=== PATIENT | female | born 1995 | race American Indian/Alaskan Native ===

== ENCOUNTER 2019-03-11 11:19 | Emergency (ER) | payer OTHER ==
--- NOTE | 2019-03-11 11:25 | Emergency Department Report ---
Blank Doc - Documentation Documentation: this is a 23-year-old female that presents with pelvic pain and vaginal bleedi ng. Stated is abot 4 weeks . This initial assessment/diagnostic orders/clinical plan/treatment(s) is/are subject to change based on patient's health status, clinical progression and re-assessment by fellow clinical providers in the ED. Further treatment and workup at subsequent clinical providers discretion. Patient/guardians urged not to elope from the ED as their condition may be serious if not clinically assessed and managed. Initial orders include: 1- Patient sent to [facility] for further evaluation and treatment 2- UA 3- labs
[2019-03-11 11:31] VITALS: BP 123/73
[2019-03-11 12:13] LABS: Basophils % (Auto) 0.1 % (0.0-1.8); Eosinophils % (Auto) 0.5 % (0.0-4.3); Hemoglobin 12.5 gm/dl (10.1-14.3); Lymphocytes # (Auto) 2.1 K/mm3 (1.2-5.4); Lymphocytes % (Auto) 38.1 % (13.4-35.0); Mean Corpuscular HGB Conc 35 % (30-34); Mean Corpuscular Volume 88 fl (79-97); Monocytes # (Auto) 0.3 K/mm3 (0.0-0.8); Platelet Count 257 K/mm3 (140-440); Red Blood Count 4.08 M/mm3 (3.65-5.03); Red Cell Distribution Width 12.7 % (13.2-15.2)
[2019-03-11 12:49] LABS: Bacteria,Urine 1+ /HPF (Negative); Bilirubin,Urine NEG (Negative); Blood,Urine NEG (Negative); Color,Urine Yellow (Yellow); Mucus,Urine 3+ /HPF; Protein,Urine <15 mg/dL mg/dL (Negative); Urobilinogen,Urine < 2.0 mg/dL (<2.0)
--- NOTE | 2019-03-11 13:15 | Emergency Department Report ---
<KIRSTIN LOTT - Last Filed: 03/11/19 15:27> ED HPI - General Chief complaint: Abdominal Pain Stated complaint: PAIN IN UTERUS/3/4 WKS Time Seen by Provider: 03/11/19 11:24 - Related Data Allergies Allergy/AdvReac Type Severity Reaction Status Date / Time No Known Allergies Allergy Unverified 03/11/19 11:22 ED Medical Decision Making - Lab Data Result diagrams: 03/11/19 11:43 - Medical Decision Making Ms. Stokes presents with suprapubic pain. She is presently 4 weeks 4 days p regnant. This is her fifth . She is has 2 living children. She had one miscarriage. On one surgical . After review of ultrasound beta Quant. Clinical impression ectopic . I spoke with Dr. Ledbetter [facility] on-call who recommended offering methotrexate to patient. I spoke with Ms. Stokes. She understands the risks alternatives benefits of this therapy. She has given consent for methotrexate therapy to treat ectopic . ED Disposition Clinical Impression: Suprapubic abdominal pain Ectopic Qualifiers: Location of ectopic : ovarian Intrauterine status: without intrauterine Laterality: left Qualified Code(s): O00.202 - Left ovarian without intrauterine Disposition: - TO HOME OR SELFCARE Condition: Stable Instructions: Ectopic (ED) Additional Instructions: follow up with Dr. Anish Ledbetter, [facility] in the next 2-3 days. will need to have a repeat beta hcg quant in the next 2-3 days, may have this done by [facility], primary care or return to the emergency room. It is very important that you follow-up with an [facility]. Return to the emergency room for any new or worsening symptoms. Referrals: ANISH LEDBETTER MD [Staff Physician] - 2-3 Days THOMPSON JEWELS KAUFMAN MD [Primary Care Provider] - 2-3 Days Forms: Work/School Release Form(ED), Methotrexate D/C Instructions Print Language: UZBEK <ALIS MCLAUGHLIN - Last Filed: 03/12/19 10:02> ED HPI - General Source: patient Mode of arrival: Ambulatory Limitations: No Limitations - History of Present Illness Initial comments: The patient is a 23-year-old female presents emergency room with complaints of suprapubic cramping that began 2 days ago. She has associated urinary sandra quency. The patient states she had some spotting last week. Denies any vaginal bleeding currently. She denies any dysuria, vaginal discharge, nausea, vomiting, fever. Patient states her last menstrual cycle was February 04. The patient states she believes she is currently . /P:2/A:2. no PMHx. no allergies to meds. ED Review of Systems ROS: Stated complaint: PAIN IN UTERUS/3/4 WKS Other details as noted in HPI Comment: All other systems reviewed and negative ED Past Medical Hx - Past Medical History Previous Medical History?: No - Surgical History Past Surgical History?: No ED Physical Exam - General Limitations: No Limitations General appearance: alert, in no apparent distress - Head Head exam: Present: atraumatic, normocephalic - Eye Eye exam: Present: normal appearance - ENT ENT exam: Present: mucous membranes moist - Respiratory Respiratory exam: Present: normal lung sounds bilaterally. Absent: respiratory distress, wheezes, rales, rhonchi, stridor, accessory muscle use, decreased breath sounds, prolonged expiratory - Cardiovascular Cardiovascular Exam: Present: regular rate, normal rhythm, normal heart sounds. Absent: systolic murmur, rubs, gallop - GI/Abdominal GI/Abdominal exam: Present: soft, tenderness (mild suprapubic), normal bowel sounds. Absent: distended, guarding, rebound, rigid - External exam: Present: other (pt deferred pelvic examination) - Neurological Exam Neurological exam: Present: alert, oriented X3 - Psychiatric Psychiatric exam: Present: normal affect, normal mood - Skin Skin exam: Present: warm, dry, intact ED Course Vital Signs 03/11/19 11:30 Temperature 98.7 F Pulse Rate 63 Respiratory 20 Rate Blood Pressure 123/73 [Right] O2 Sat by Pulse 100 Oximetry - Consultations Consultation #1: 03/11/19 15:[address] Anish Ledbetter, [facility] who recommended to offer pt methotrexate or surgical removal. pt elected to take the medication. will follow up in clinic. ED Medical Decision Making - Lab Data Result diagrams: 03/11/19 11:43 03/11/19 16:36 - Radiology Data Radiology results: report reviewed ULTRASOUND OB LESS <=14 WEEKS FETUS ULTRASOUND OB TRANSVAGINAL HISTORY: Pelvic pain for 3 days TECHNIQUE: Transabdominal and transvaginal ultrasound images with color Doppler imaging. COMPARISON: None. FINDINGS: The uterus is anteverted and measures 8.4 x 5.7 x 7.0 cm. No uterine mass is identified. The cervix is unremarkable. The endometrial stripe measures 1.1 cm and contains trace fluid. No intrauterine gestational sac is identified at this time. The right ovary is unremarkable measuring 3.0 x 1.5 x 2.1 cm. The left ovary measures 3.6 x 2.2 x 2.3 cm and contains a 1.3 cm cyst. Adjacent to the left ovary there is a complex cystic structure measuring up to 1 cm in diameter. There appears to be a tiny yolk sac within this structure. No convincing pole or heart rate is demonstrated in this structure. There is increased peripheral flow on color Doppler imaging. Trace pelvic fluid is noted in the cul-de-sac. IMPRESSION: No intrauterine is visualized at this time. Complex left adnexal cystic mass which is concerning for an early ectopic . Close interval follow-up is recommended. Signer Name: Anish Deng Jr, MD Signed: 03/11/2019 1:38 PM Workstation Name: [id number] Transcribed By: TTR Dictated By: ANISH DENG JR, MD Electronically Authenticated By: ANISH DENG JR, MD Signed Date/Time: 03/11/19 2171 - Medical Decision Making The patient is a 23-year-old female presents emergency room with complaints of suprapubic cramping that began 2 days ago. She has associated urinary frequency. The patient states she had some spotting last week. Denies any vaginal bleeding currently. She denies any dysuria, vaginal discharge, nausea, vomiting, fever. Patient states her last menstrual cycle was February 04. The patient states she believes she is currently . /P:2/A:2. no PMHx. no allergies to meds. VSS. pt has mild suprapubic tenderness on exam. hcg quant is 571. OB US shows No intrauterine is visualized at this time. Complex left adnexal cystic mass which is concerning for an early ectopic . There appears to be a tiny yolk sac within this structure. discussed results with Dr. Anish Ledbetter, [facility] he recommended to offer the pt methotrexate vs. surgical resolution. after discussion with pt and Dr. Kelly Lott discussed with pt as well risks vs benefits, pt decided on methotrexate. appro priate labs were obtained. pt declined to have pelvic examination, states she would like to follow up with [facility]. pt signed consent for methotrexate and [facility] by Dr. Kelly Lott. advised pt to please follow up with Dr. Anish Ledbetter, [facility] in the next 2-3 days. will need to have a repeat beta hcg quant in the next 2-3 days, may have this done by [facility], primary care or return to the emergency room. It is very important that you follow-up with an [facility]. Return to the emergency room for any new or worsening symptoms. - Differential Diagnosis IUP, ectopic, spontaneous , UTI Critical care attestation.: If time is entered above; I have spent that time in minutes in the direct care of this critically ill patient, excluding procedure time. ED Disposition Is pt being admited?: No Does the pt Need Aspirin: No Time of Disposition: 15:11
--- NOTE | 2019-03-11 13:42 | Ultrasound Report ---
ULTRASOUND OB LESS <=14 WEEKS FETUS ULTRASOUND OB TRANSVAGINAL HISTORY: Pelvic pain for 3 days TECHNIQUE: Transabdominal and transvaginal ultrasound images with color Doppler imaging. COMPARISON: None. FINDINGS: The uterus is anteverted and measures 8.4 x 5.7 x 7.0 cm. No uterine mass is identified. The cervix i s unremarkable. The endometrial stripe measures 1.1 cm and contains trace fluid. No intrauterine gestational sac is i dentified at this time. The right ovary is unremarkable measuring 3.0 x 1.5 x 2.1 cm. The left ovary measures 3.6 x 2.2 x 2.3 cm and contains a 1.3 cm cyst. Adjacent to the left ovary the re is a complex cystic structure measuring up to 1 cm in diameter. There appears to be a tiny yolk sa c within this structure. No convincing pole or heart rate is demonstrated in this structu re. There is increased peripheral flow on color Doppler imaging. Trace pelvic fluid is noted in the cul-de-sac. IMPRESSION: No intrauterine is visualized at this time. Complex left adnexal cystic mass which is concerning for an early ectopic . Close interval f ollow-up is recommended. Signer Name: Anish Deng Jr, MD Signed: 03/11/2019 1:38 PM Workstation Name: [id number]
[2019-03-11 17:09] LABS: Alanine Aminotransferase 13 units/L (7-56); Albumin 4.3 g/dL (3.9-5); BUN/Creatinine Ratio 23; Blood Urea Nitrogen 9 mg/dL (7-17); Calcium 9.2 mg/dL (8.4-10.2); Hemolysis Index 2
== END 2019-03-11 18:03 | disposition home or self-care (01) ==
LOC: ED 11:19
DX: O00.90 Unspecified ectopic pregnancy without intrauterine pregnancy (principal); Z3A.01 Less than 8 weeks gestation of pregnancy
CPT/HCPCS: 36415; 76801; 76817; 80053; 81001; 84702; 85025; 86850; 86900; 86901; 96372; 99284; J9260